=== PATIENT | female | born 1995 | race Two or more races ===

== ENCOUNTER 2023-12-29 09:30 | Emergency (ER) | payer OTHER ==
[~2023-12-29] VITALS: Ht 147.3 cm; Wt 61.4 kg
[2023-12-29 09:33] VITALS: BP 131/84; PULSE 88; RESP 18; TEMP 98.3; O2SAT 99
[2023-12-29] MEDS: HydrOXYzine PAMOATE 50 MG CAPSULE PO ONE (09:56)
[2023-12-29] MEDS ORDERED: HYDR50CA7 PO (10:44)
== END 2023-12-29 11:05 | disposition home or self-care (01) ==
LOC: EMS 09:30
DX: F41.9 Anxiety disorder, unspecified (principal)
CPT/HCPCS: 93005; 99283